=== PATIENT | male | born 1965 | race Caucasian/White ===

== ENCOUNTER 2018-04-24 17:54 | Emergency (ER) | payer MEDICAID, MEDICARE ==
[~2018-04-24] VITALS: Ht 180.3 cm; Wt 70.3 kg
[~2018-04-24 17:54] MED LIST: ? ANTIBIOTIC; ACET325; ACET325 PO; ACET500; ACET500 PO; ALBU90OI INH; AMIT50; AMIT50 PO; AZIT250 PO; BENZ100A; BENZ100A PO; BISA10S; CARI350; CARI350 PO; CEPH500 PO; CLIN300 PO; CLON.2 PO; CODGUAEL PO; CVS DISPOSABLE399 ML; CYCL10; Carisoprodol350 MG PO; DEXA4 PO; DIAZ5 PO; DIPATR PO; DOXY100 PO; GABA300 PO; HYDACE10B PO; HYDACE5; HYDACE5 PO; HYDACE5325 PO; HYDGUAL120 PO; HYDHCL25 PO; HYDMOR2 PO; HYDMOR4 PO; HYDMOR8 PO; IBUP600; IBUP600 PO; IBUP800; IBUP800 PO; KEPPRA250 MG PO; KETO15TC TOP; LEVE500 PO; LEVO750 PO; LIDO5TP TOP; LORA1; Lovenox100 MG/1 M SC; MELO7.5 PO; METH10; METH10 PO; METPRE4DP PO; NAPR375 PO; NAPR500; NAPR500 PO; NAPR550 PO; Naproxen250 MG PO; Nizoral15 GM TOP; OMEP10ER PO; OMEP20ER PO; ONDA4 PO; ONDA8 PO; OXYACE5T; OXYACE5T PO; OXYC30 PO; OXYC30ER; OXYC30ER PO; OXYC5; OXYC5 PO; Oxycontin60 MG PO; PERCOCET; PRED20 PO; PROACE100 PO; PRODEXEL PO; PROM25; PROM25 PO; PROM25S PR; PROM50S PR; RIFA300 PO; RXERYTOPTH OP; RXHYD5325 PO; RXHYDGUAS PO; RXHYDMOR2 PO; RXOXYACE PO; RXPROACE PO; RXPROM25 PO; RXPROM25S PR; RXPROMSY PO; RXSULTRIDS PO; SULTRIDS PO; SULTRISS PO; Senna8.6 MG PO; TRAZ100; TRIAOI IH
== END 2018-04-24 20:46 | disposition home or self-care (01) ==
LOC: ER 17:54
DX: Z76.0 Encounter for issue of repeat prescription (principal); Z88.5 Allergy status to narcotic agent; Z88.8 Allergy status to other drugs, medicaments and biological substances; Z88.2 Allergy status to sulfonamides; Z88.1 Allergy status to other antibiotic agents; Z79.899 Other long term (current) drug therapy; Z79.891 Long term (current) use of opiate analgesic; F17.200 Nicotine dependence, unspecified, uncomplicated

== ENCOUNTER 2018-09-04 18:07 | Emergency (ER) | payer OTHER, MEDICARE ==
[~2018-09-04] VITALS: Ht 180.3 cm; Wt 77.1 kg
== END 2018-09-04 20:30 | disposition home or self-care (01) ==
LOC: ER 18:07
DX: S09.90XA Unspecified injury of head, initial encounter (principal); Y04.0XXA Assault by unarmed brawl or fight, initial encounter; Z88.5 Allergy status to narcotic agent; Z88.8 Allergy status to other drugs, medicaments and biological substances; Z88.2 Allergy status to sulfonamides; Z88.1 Allergy status to other antibiotic agents; Z79.899 Other long term (current) drug therapy; F17.200 Nicotine dependence, unspecified, uncomplicated
CPT/HCPCS: 70450; 99285-25

== ENCOUNTER → 2019-08-10 | Outpatient (CLI) | payer OTHER ==
[2019-08-10 20:37] LABS: U Amphetamine Screen Not Detected; U Barbituate Screen Not Detected; U Benzodiazapine Screen DETECTED; U Buprenorphine Screen Not Detected; U Cannabinoids Screen Not Detected; U Cocaine Screen DETECTED; U Methadone Screen Not Detected; U Methamphetamine Screen Not Detected; U Opiates Screen DETECTED; U Oxycodone Screen DETECTED; U Phencyclidine Screen Not Detected; U Propoxyphene Screen Not Detected
== END | disposition home or self-care (01) ==
LOC: LAB SHORT 13:15 → LAB 13:15
PROVIDERS: Internal Medicine Hematology & Oncology
DX: L03.113 Cellulitis of right upper limb (principal); F11.20 Opioid dependence, uncomplicated
CPT/HCPCS: 87070; 87205; G0480

== ENCOUNTER → 2020-05-12 | Outpatient (CLI) | payer OTHER ==
[~2020-05-12] MED LIST changes: +ESCI10 PO; +OXYC80ER PO
[2020-05-12 15:28] LABS: U Amphetamine Screen Not Detected; U Barbituate Screen Not Detected; U Benzodiazapine Screen Not Detected; U Buprenorphine Screen Not Detected; U Cannabinoids Screen Not Detected; U Cocaine Screen Not Detected; U Methadone Screen Not Detected; U Methamphetamine Screen DETECTED; U Opiates Screen DETECTED; U Oxycodone Screen Not Detected; U Phencyclidine Screen Not Detected; U Propoxyphene Screen Not Detected
[2020-05-17 22:07] LABS: 6-ACETYLMORPHINE 1275 (.)
== END | disposition home or self-care (01) ==
LOC: LAB SHORT 13:11 → LAB 13:11
PROVIDERS: Internal Medicine Hematology & Oncology
DX: Z51.81 Encounter for therapeutic drug level monitoring (principal); Z79.899 Other long term (current) drug therapy
CPT/HCPCS: G0480

== ENCOUNTER → 2020-10-30 | Outpatient (CLI) | payer OTHER ==
[~2020-10-30] MED LIST changes: +DICLOXACILLIN500 M2 PO
[2020-10-30 20:42] LABS: U Amphetamine Screen DETECTED; U Cocaine Screen DETECTED; U Methamphetamine Screen DETECTED
[2020-10-30 20:43] LABS: U Barbituate Screen Not Detected; U Benzodiazapine Screen Not Detected; U Buprenorphine Screen Not Detected; U Cannabinoids Screen Not Detected; U Methadone Screen Not Detected; U Opiates Screen DETECTED; U Oxycodone Screen DETECTED; U Phencyclidine Screen Not Detected; U Propoxyphene Screen Not Detected
== END | disposition home or self-care (01) ==
LOC: LAB SHORT 13:25 → LAB FUT 10-30 17:30
PROVIDERS: Nurse Practitioner Family
DX: F11.20 Opioid dependence, uncomplicated (principal)

== ENCOUNTER 2020-11-02 22:15 | Inpatient (IN) | payer OTHER ==
[~2020-11-02] VITALS: Ht 175.3 cm; Wt 90.1 kg
[~2020-11-02 22:15] MED LIST changes: -DICLOXACILLIN500 M2 PO
[2020-11-02] MEDS ORDERED: DICLOXACILLIN500 M2 PO (22:43)
[2020-11-02 23:07] LABS: BASOPHILS ABSOLUTE AUTO 0.04 K/mm3 (0.00-0.23); BASOPHILS PERCENT AUTO 0 % (0-2); EOSINOPHILS ABSOLUTE AUTO 0.01 K/mm3 (0.00-0.68); EOSINOPHILS PERCENT AUTO 0 % (0-6); Hematocrit 40.5 % (37.0-53.0); IMMATURE GRAN ABSOLUTE AUTO 0.03 K/mm3 (0.00-0.10); IMMATURE GRAN PERCENT AUTO 0 % (0-1); LYMPHOCYTES ABSOLUTE AUTO 0.53 K/mm3 (0.84-5.20); LYMPHOCYTES PERCENT AUTO 4 % (21-46); MONOCYTES ABSOLUTE AUTO 0.39 K/mm3 (0.16-1.47); MONOCYTES PERCENT AUTO 3 % (4-13); Mean Corpuscular HGB 25.6 pg (26.0-34.0); Mean Corpuscular HGB Conc 32.1 g/dL (31.5-36.5); Mean Corpuscular Volume 80 fL (80-100); Mean Platelet Volume 9.9 fL (9.1-12.4); NEUTROPHILS ABSOLUTE AUTO 11.34 K/mm3 (1.96-9.15); NEUTROPHILS PERCENT AUTO 92 % (41-73); Platelet Count 307 K/mm3 (150-400); RDW Coefficient Variation 14.5 % (11.7-14.2); RDW Standard Deviation 42.3 fL (35.1-46.3); Red Blood Cell Count 5.07 M/mm3 (4.30-5.90); White Blood Cell Count 12.34 K/mm3 (4.00-11.30)
[2020-11-02 23:30] LABS: Alanine Aminotransfer (ALT/SGP 44 U/L (12-78); Albumin, Blood 3.7 g/dL (3.4-5.0); Albumin/Globulin Ratio 0.8 (0.8-1.8); Alk Phos 74 U/L (50-136); Anion Gap 5 mmol/L (6-16); Aspartate Aminotrans (AST/SGOT 31 U/L (12-37); Bilirubin, Total 0.5 mg/dL (0.1-1.0); Blood Urea Nitrogen 24 mg/dL (8-24); Bun/Creatinine Ratio 30.3 (12.0-20.0); CO2, Blood 26 mmol/L (21-32); Calcium, Blood 9.9 mg/dL (8.5-10.1); Chloride, Blood 106 mmol/L (98-108); Creatinine, Blood 0.79 mg/dL (0.60-1.20); Globulin, Blood 4.4 g/dL (2.2-4.0); Glomerular Filtration Rate >60 (60-); Glucose, Blood 150 mg/dL (70-99); Magnesium, Blood 2.3 mg/dL (1.6-2.4); Potassium, Blood 3.9 mmol/L (3.5-5.5); Sodium, Blood 137 mmol/L (136-145); Total Protein, Blood 8.1 g/dL (6.4-8.2)
[2020-11-03 02:03] LABS: SARS-Cov-2 (COVID-19) PCR, MMC NEGATIVE (NEGATIVE)
[2020-11-03 04:23] LABS: BASOPHILS ABSOLUTE AUTO 0.03 K/mm3 (0.00-0.23); BASOPHILS PERCENT AUTO 0 % (0-2); EOSINOPHILS PERCENT AUTO 0 % (0-6); Hematocrit 37.5 % (37.0-53.0); IMMATURE GRAN ABSOLUTE AUTO 0.06 K/mm3 (0.00-0.10); IMMATURE GRAN PERCENT AUTO 0 % (0-1); LYMPHOCYTES ABSOLUTE AUTO 0.43 K/mm3 (0.84-5.20); LYMPHOCYTES PERCENT AUTO 3 % (21-46); MONOCYTES PERCENT AUTO 4 % (4-13); Mean Corpuscular HGB 25.7 pg (26.0-34.0); Mean Corpuscular Volume 80 fL (80-100); Mean Platelet Volume 10.3 fL (9.1-12.4); NEUTROPHILS ABSOLUTE AUTO 13.93 K/mm3 (1.96-9.15); NEUTROPHILS PERCENT AUTO 93 % (41-73); Platelet Count 271 K/mm3 (150-400); RDW Coefficient Variation 14.4 % (11.7-14.2); RDW Standard Deviation 42.4 fL (35.1-46.3); Red Blood Cell Count 4.67 M/mm3 (4.30-5.90); White Blood Cell Count 15.05 K/mm3 (4.00-11.30)
[2020-11-03 04:47] LABS: Alanine Aminotransfer (ALT/SGP 40 U/L (12-78); Albumin, Blood 3.2 g/dL (3.4-5.0); Albumin/Globulin Ratio 0.8 (0.8-1.8); Alk Phos 65 U/L (50-136); Anion Gap 6 mmol/L (6-16); Aspartate Aminotrans (AST/SGOT 28 U/L (12-37); Bilirubin, Total 0.4 mg/dL (0.1-1.0); Blood Urea Nitrogen 23 mg/dL (8-24); Bun/Creatinine Ratio 29.6 (12.0-20.0); CO2, Blood 28 mmol/L (21-32); Calcium, Blood 8.8 mg/dL (8.5-10.1); Chloride, Blood 105 mmol/L (98-108); Creatinine, Blood 0.78 mg/dL (0.60-1.20); Globulin, Blood 4.1 g/dL (2.2-4.0); Glomerular Filtration Rate >60 (60-); Glucose, Blood 141 mg/dL (70-99); Potassium, Blood 3.6 mmol/L (3.5-5.5); Sodium, Blood 139 mmol/L (136-145); Total Protein, Blood 7.3 g/dL (6.4-8.2)
--- NOTE | 2020-11-03 07:21 | NUR ---
PT ARRIVED TO FLOOR AT 0300. 3 STAFF TO TRANSFER FROM [facility] TO BED. TAMMY DRAIN IN PLACE TO RIGHT SHOULDER, MINIMAL AMOUNT OF [place] DRNG TO DRAIN. 20G PIV TO LUE. 24G PIV TO LEFT CHEST. IVF OF NS AT 75/HR STARTED. MEDICATED FOR NAUSEA X1. MEDICATED FOR PAIN X1. PT NEEDS FREQ REMINDERS TO REMAIN IN BED. POOR SAFETY AWARENESS. TRIES TO GET OOB. BED ALARM ON. NPO. NGT TO LIS, LT NARE, 14. NO VOMITTING SINCE ON FLOOR.
--- NOTE | 2020-11-03 10:20 | NUR ---
NO OUTPUT REPORTED IN NGTUBE OVER NIGHT. PT REPOSITIONED AT 0930 WITH IMMEDIATE RETURN OF 1400 OUT OF NG TUBE. HE HAS SINCE DRAINED 1000 MORE ML FROM NG. BROWN IN COLOR WITH SOME SEDIMENT. NOTIFIED DR ZHOU. ORDERS RECIEVED FOR 1L NS BOLUS AND DR TO COME SEE HIM SOON.
--- NOTE | 2020-11-03 17:00 | NUR ---
SHIFT SUMMARY PT VITAL SIGNS STABLE. NG OUTPUT OF 300ML SINCE THIS MORNINGS OUTPUT OF 2400ML (SEE PREVIOUS NOTE.) NS BOLUS ORDERED BY DR AFTER LARGE DRAINAGE AMOUNT FROM NG. PT REPORTS NAUSEA IMPROVING AND NO VOMITING. PAIN BEING MANAGED WELL PER EMAR. PT VOIDING MARY JO CLEAR URINE. TAMMY DRAIN REMOVED TODAY BY DR. MCNEILL.
--- NOTE | 2020-11-03 18:34 | NUR ---
ADVANCED NG TUBE PER DR ERWIN RECCOMENDATION. MINIMAL OUTPUT IN NG SINCE DR ZHOU ROUNDED PREVIOUSLY. PT CURRENTLY SLEEPING IN BED, DENIES NAUSEA OR PAIN.
[2020-11-04 04:00] LABS: BASOPHILS ABSOLUTE AUTO 0.01 K/mm3 (0.00-0.23); BASOPHILS PERCENT AUTO 0 % (0-2); EOSINOPHILS PERCENT AUTO 0 % (0-6); Hematocrit 32.7 % (37.0-53.0); Hemoglobin 10.7 g/dL (13.5-17.5); IMMATURE GRAN ABSOLUTE AUTO 0.05 K/mm3 (0.00-0.10); IMMATURE GRAN PERCENT AUTO 1 % (0-1); LYMPHOCYTES ABSOLUTE AUTO 0.74 K/mm3 (0.84-5.20); LYMPHOCYTES PERCENT AUTO 8 % (21-46); MONOCYTES ABSOLUTE AUTO 0.44 K/mm3 (0.16-1.47); MONOCYTES PERCENT AUTO 5 % (4-13); Mean Corpuscular HGB Conc 32.7 g/dL (31.5-36.5); Mean Corpuscular Volume 79 fL (80-100); Mean Platelet Volume 10.1 fL (9.1-12.4); NEUTROPHILS ABSOLUTE AUTO 8.21 K/mm3 (1.96-9.15); NEUTROPHILS PERCENT AUTO 87 % (41-73); Platelet Count 273 K/mm3 (150-400); RDW Coefficient Variation 14.3 % (11.7-14.2); Red Blood Cell Count 4.12 M/mm3 (4.30-5.90); White Blood Cell Count 9.45 K/mm3 (4.00-11.30)
[2020-11-04 04:28] LABS: Albumin, Blood 2.9 g/dL (3.4-5.0); Anion Gap 4 mmol/L (6-16); Blood Urea Nitrogen 18 mg/dL (8-24); Bun/Creatinine Ratio 23.7 (12.0-20.0); CO2, Blood 28 mmol/L (21-32); Calcium, Blood 8.4 mg/dL (8.5-10.1); Chloride, Blood 107 mmol/L (98-108); Creatinine, Blood 0.76 mg/dL (0.60-1.20); Glomerular Filtration Rate >60 (60-); Glucose, Blood 118 mg/dL (70-99); Phosphorus, Blood 1.7 mg/dL (2.5-4.9); Potassium, Blood 3.5 mmol/L (3.5-5.5); Sodium, Blood 139 mmol/L (136-145)
--- NOTE | 2020-11-04 10:51 | NUR ---
AMA PT CALLED, STATES HE IS LEAVING BECAUSE HIS DOG IS MISSING AND HE HAS TO GO FIND HIM. EXPLAINED TO PT THE RISKS OF LEAVING AND EXPLAINED AMA TO HIM, PT VERBALIZED UNDERSTANDING AND STILL STATES HE IS LEAVING. DR PELAYO NOTIFIED, NG TUBE AND IV REMOVED. PT SIGNED AMA FORM AND VERBALIZED UNDERSTANDING OF THE RISKS. WHEELCHAIR OUTSIDE, PT STATES HE HAS CALLED FOR A RIDE.
== END 2020-11-04 11:08 | disposition left against medical advice (07) | DRG 389 ==
LOC: ER 22:15 → SURS 11-03 01:15
PROVIDERS: Emergency Medicine; Family Medicine; ADMIT Internal Medicine
DX: K56.609 Unspecified intestinal obstruction, unspecified as to partial versus complete obstruction (principal); M00.9 Pyogenic arthritis, unspecified; D72.829 Elevated white blood cell count, unspecified; Z20.822 Contact with and (suspected) exposure to COVID-19; D64.9 Anemia, unspecified; B18.2 Chronic viral hepatitis C; G47.00 Insomnia, unspecified; F17.210 Nicotine dependence, cigarettes, uncomplicated; Z96.611 Presence of right artificial shoulder joint; Z88.5 Allergy status to narcotic agent; Z88.2 Allergy status to sulfonamides; Z88.8 Allergy status to other drugs, medicaments and biological substances; Z79.899 Other long term (current) drug therapy; Z85.841 Personal history of malignant neoplasm of brain; Z85.118 Personal history of other malignant neoplasm of bronchus and lung; Z85.820 Personal history of malignant melanoma of skin; Z98.890 Other specified postprocedural states; Z90.49 Acquired absence of other specified parts of digestive tract; Z90.2 Acquired absence of lung [part of]
CPT/HCPCS: 36415; 71045; 73030; 74176; 80053; 80069; 83605; 83690; 83735; 84145; 85025; 93005; 93010; 96361; 96374; 96375; 96376; 99285-25; C9113; J0696; J1170; J1650; J1953; J2250; J2405; J7030; J7060; J7120; U0004

== ENCOUNTER → 2021-03-09 | Outpatient (CLI) | payer OTHER ==
[~2021-03-09] MED LIST changes: +DICLOXACILLIN500 M2 PO
== END | disposition home or self-care (01) ==
LOC: LAB SHORT 11:48
DX: C44.319 Basal cell carcinoma of skin of other parts of face (principal); C44.41 Basal cell carcinoma of skin of scalp and neck
CPT/HCPCS: 88305

== ENCOUNTER 2021-06-02 17:44 | Emergency (ER) | payer OTHER ==
[~2021-06-02] VITALS: Ht 182.9 cm; Wt 81.7 kg
== END 2021-06-02 18:41 | disposition left against medical advice (07) ==
LOC: ER 17:44
DX: M79.89 Other specified soft tissue disorders (principal); Z53.21 Procedure and treatment not carried out due to patient leaving prior to being seen by health care provider
CPT/HCPCS: 99282

== ENCOUNTER 2021-06-04 03:58 | Emergency (ER) | payer OTHER ==
[~2021-06-04] VITALS: Ht 182.9 cm; Wt 77.1 kg
[2021-06-04] MEDS ORDERED: CEFD300 PO (04:51)
[2021-07-12] MEDS ORDERED: Bactrim Ds Tab1 EACH PO ×2 (08:15→11:54)
== END 2021-06-04 05:20 | disposition home or self-care (01) ==
LOC: ER 03:58
DX: L03.114 Cellulitis of left upper limb (principal); R60.0 Localized edema; Z88.5 Allergy status to narcotic agent; Z88.8 Allergy status to other drugs, medicaments and biological substances; Z88.1 Allergy status to other antibiotic agents; Z88.2 Allergy status to sulfonamides; Z79.899 Other long term (current) drug therapy; F17.210 Nicotine dependence, cigarettes, uncomplicated
CPT/HCPCS: 99283; A9270

== ENCOUNTER → 2021-06-08 | Outpatient (CLI) | payer OTHER ==
[~2021-06-08] MED LIST changes: +CEFD300 PO
== END | disposition home or self-care (01) ==
LOC: LAB 11:45 → LAB SHORT 11:45
DX: L08.9 Local infection of the skin and subcutaneous tissue, unspecified (principal)
CPT/HCPCS: 87070; 87075; 87077; 87147; 87186; 87205

== ENCOUNTER 2021-07-24 05:03 | Day surgery (SDC) | payer OTHER ==
[~2021-07-24 05:03] MED LIST changes: +Bactrim Ds Tab1 EACH PO
== END 2021-07-24 23:10 | disposition home or self-care (01) ==
LOC: WOUND 05:03
DX: T81.31XD Disruption of external operation (surgical) wound, not elsewhere classified, subsequent encounter (principal); S11.90XD Unspecified open wound of unspecified part of neck, subsequent encounter; X58.XXXD Exposure to other specified factors, subsequent encounter; C44.91 Basal cell carcinoma of skin, unspecified; Z88.5 Allergy status to narcotic agent; Z88.8 Allergy status to other drugs, medicaments and biological substances; Z87.891 Personal history of nicotine dependence
CPT/HCPCS: A9270; G0463